=== PATIENT | male | born 1955 | race Caucasian/White ===

== ENCOUNTER 2018-06-22 19:12 | Inpatient (IN) | payer OTHER ==
[2018-06-22] MEDS ORDERED: levETIRAcetam In NaCl (Iso-Os) 1,000 MG in Premix Bag 1 BAG IVPB SCH (19:30)
[2018-06-22] MEDS ORDERED: Lorazepam 2 MG/ML VIAL ONE ×2 (19:38→20:04)
[2018-06-22 19:46] LABS: #Lymphocytes 0.8 thou/uL (1.20-3.40); #Monocytes 1.2 thou/uL (0.11-0.59); %Basophils 0.1 % (0.0-1.0); %Eosinophils 0.1 % (0.0-10.0); %Lymphocytes 5.1 % (21.0-51.0); %Monocytes 8.2 % (0.0-10.0); %Neutrophils 86.5 % (42.0-75.0); Hemoglobin 13.8 g/dL (14.0-18.0); Mean Corpuscular HGB CONC 32.9 g/dL (32.0-36.0); Mean Corpuscular Hemoglobin 32.7 pg (27.0-31.0); Mean Corpuscular Volume 99.4 fL (78.0-98.0); Platelet Count 179 thou/uL (130-400); RBC Distribution Width 11.9 % (11.5-14.5); Red Blood Cell (RBC) Count 4.23 mill/uL (4.70-6.10); White Blood Cell (WBC) Count 15.1 thou/uL (4.8-10.8)
[2018-06-22 20:08] LABS: ALT (SGPT) 27 U/L (8-55); AST (SGOT) 54 U/L (5-34); Albumin 4.7 g/dL (3.4-4.8); Alkaline Phosphatase 70 U/L (40-150); Anion Gap 29 mmol/L (10-20); BUN (Urea Nitrogen) 6 mg/dL (8.4-25.7); Calc. Creatinine Clearance 0 mL/min (70-130); Calcium 9.2 mg/dL (7.8-10.44); Carbon Dioxide 13 mmol/L (23-31); Chloride 99 mmol/L (98-107); Estimated GFR-MDRD 75; Globulin 3.7 g/dL (2.4-3.5); Glucose 154 mg/dL (80-115); Potassium 3.4 mmol/L (3.5-5.1); Protein, Total 8.4 g/dL (5.8-8.1); Sodium 138 mmol/L (136-145)
[2018-06-22 20:56] LABS: Acetaminophen Less than 6.0 mcg/mL (10.0-30.0); Alcohol Less than 10 mg/dL (Less than 10); Salicylate Less than 8.0 mg/dL (15.0-30.0)
[2018-06-22] MEDS ORDERED: Acetaminophen 650 MG Suppository ONE (21:26)
--- NOTE | 2018-06-22 21:39 | RAD ---
Frontal radiograph chest: 06/22/2018 COMPARISON: None HISTORY: Seizure FINDINGS: Lungs are clear. Heart and mediastinal contours are unremarkable. IMPRESSION: No acute findings.
[2018-06-22 22:18] LABS: Bilirubin Negative (Negative); Blood, Urine Negative (Negative); Clarity CLEAR (Clear); Glucose, Urine (Dipstick) 500 mg/dL (Negative); Leukocyte Negative (Negative); Nitrite Negative (Negative); Protein, Urine (Dipstick) Negative (Neg-Trace); Specific Gravity, Urine 1.013 (1.002-1.036); Urobilinogen 0.2 mg/dL (0.2-1.0); pH, Urine 5.5 (5.0-9.0)
[2018-06-22 22:27] LABS: Amphetamine Not Detected (NotDetected); Benzodiazepine Screen Detected (NotDetected); Cocaine Metabolite Screen Not Detected (NotDetected); Medtox Reader # READER 1; Methamphetamine Not Detected (NotDetected); Opiate Screen Not Detected (NotDetected); Phencyclidine (PCP) Not Detected (NotDetected); THC/Cannabinoid Screen Detected (NotDetected); Tricyclic Screen Not Detected (NotDetected)
[2018-06-22 22:28] LABS: Barbiturates Screen Not Detected (NotDetected); Medtox Control Line Valid? VALID (VALID); Methadone Not Detected (NotDetected); Oxycodone Screen Not Detected (NotDetected)
[2018-06-22] MEDS ORDERED: Piperacillin/Tazobactam 4.5 GM VIAL ONE (22:42)
[2018-06-22] MEDS ORDERED: Acetaminophen 650 MG Suppository PR PRN (23:52)
[2018-06-22] MEDS ORDERED: Ondansetron ODT 4 MG TAB PO PRN (23:52)
[2018-06-22] MEDS ORDERED: Ondansetron PF 4 MG/2 ML Vial IVP PRN (23:52)
[2018-06-23] MEDS ORDERED: Ondansetron PF 4 MG/2 ML Vial ONE (00:53)
[2018-06-23 02:10] LABS: Lactic Acid 4.1 mmol/L (0.5-2.2)
[2018-06-23] MEDS: cefTRIAXone\\ROCEPHIN 2 GM in Sodium Chloride 0.9% 100 ML IVPB SCH ×2 (03:48→15:16)
[2018-06-23 04:53] LABS: #Lymphocytes 0.9 thou/uL (1.20-3.40); #Monocytes 1.7 thou/uL (0.11-0.59); #Neutrophils 9.3 thou/uL (1.40-6.50); %Basophils 0.2 % (0.0-1.0); %Eosinophils 0.1 % (0.0-10.0); %Lymphocytes 7.2 % (21.0-51.0); %Monocytes 14.4 % (0.0-10.0); %Neutrophils 78.1 % (42.0-75.0); Hemoglobin 13.3 g/dL (14.0-18.0); Mean Corpuscular Hemoglobin 33.1 pg (27.0-31.0); Mean Corpuscular Volume 97.2 fL (78.0-98.0); Mean Platelet Volume 9.5 fL (7.4-10.4); Platelet Count 132 thou/uL (130-400); RBC Distribution Width 11.8 % (11.5-14.5); Red Blood Cell (RBC) Count 4.01 mill/uL (4.70-6.10)
[2018-06-23 05:13] LABS: Anion Gap 18 mmol/L (10-20); BUN (Urea Nitrogen) 4 mg/dL (8.4-25.7); Calc. Creatinine Clearance 0 mL/min (70-130); Calcium 8.3 mg/dL (7.8-10.44); Carbon Dioxide 20 mmol/L (23-31); Chloride 100 mmol/L (98-107); Estimated GFR-MDRD Greater than 90; Glucose 101 mg/dL (80-115); Potassium 3.1 mmol/L (3.5-5.1); Sodium 135 mmol/L (136-145)
--- NOTE | 2018-06-23 08:30 | CT ---
PRELIMINARY REPORT/[facility]/EMERGENTY AFTER-HOURS PROCEDURE CT Head Without Contrast EXAM DATE/TIME: 06/23/2018 1:14 AM CLINICAL HISTORY: 63 years old, male; Signs and symptoms; Patient HX: M63 presents ED for seizure. EMS reports PT was f ound sitting on couch. EMS reports PT takes keppra. reports PT drinks a lot of ETOH. report s first seizure was at 1901 lasting 10 min. EMS reports recent seizure lasted 45 secs. TECHNIQUE: Imaging protocol: Axial computed tomography images of the head/brain without contrast. COMPARISON: No relevant prior studies available. FINDINGS: Brain: Scattered areas of hypoattenuation, likely chronic small vessel ischemic change, demyelination , or gliosis. There is parenchymal atrophy. No mass, hemorrhage, or acute infarction. Ventricles: Normal. Bones/joints: Normal. Sinuses: Normal as visualized. Mastoid air cells: Normal as visualized. Soft tissues: Unremarkable. Vasculature: Atherosclerotic vascular calcifications. IMPRESSION: No acute intracranial abnormality. Thank you for allowing us to participate in the care of your patient. Dictated and Authenticated by: Sánchez Montague MD 06/23/2018 2:41 AM Central Time ([place] & [place]) FINAL REPORT CT OF BRAIN WITHOUT CONTRAST: I agree with the preliminary report given by Dr. Sánchez Montague of [facility]. POS: OFF
[2018-06-23] MEDS ORDERED: Enoxaparin Sodium 40 MG/0.4 ML SYRINGE ONE (08:40)
[2018-06-23] MEDS: Vancomycin HCl 1 GM in Premix Bag 1 BAG IVPB SCH ×2 (08:46→22:05)
[2018-06-23] MEDS ORDERED: Enoxaparin Sodium 40 MG/0.4 ML SYRINGE SC SCH (09:00)
[2018-06-23] MEDS ORDERED: hydrALAZINE 20 MG/ML VIAL SLOW IVP PRN (13:30)
[2018-06-23] MEDS ORDERED: Acetaminophen 500 MG TAB PO PRN (13:30)
[2018-06-23] MEDS ORDERED: Ondansetron ODT 4 MG TAB PO PRN (13:30)
[2018-06-23] MEDS ORDERED: Lorazepam 2 MG/ML VIAL SLOW IVP PRN (13:30)
[2018-06-23] MEDS ORDERED: Ondansetron PF 4 MG/2 ML Vial IVP PRN (13:30)
[2018-06-23] MEDS ORDERED: Potassium Chloride 20 MEQ TAB PO SCH (13:45)
[2018-06-23] MEDS ORDERED: levETIRAcetam 500 MG TAB PO SCH (14:00)
[2018-06-23] MEDS: Sodium Chloride 0.9% 1,000 ML IV SCH (15:17)
[2018-06-23 15:42] VITALS: BMI 20.7
[2018-06-23] MEDS: Potassium Chloride 20 MEQ TAB PO SCH (18:19)
--- NOTE | 2018-06-23 19:51 | HP ---
CHIEF COMPLAINT: Seizures. HISTORY OF PRESENT ILLNESS: This is a 63-year-old male, who presented to [facility] Emergency Department on 06/22/2018, after apparently presenting with multiple seizures. The patient with a known seizure disorder. Apparently, placed on antiseizure medications within the last 4 weeks and the patient relates he ran out of the medication in the last 24 hours. The patient states his last known seizure was approximately a month ago, prompting him to be initiated on seizure medication. The patient states he has been compliant with medication, but is unsure of the name of it, but states he was taking it twice daily. The patient also admits to drinking alcohol, several beers only every few days. The patient apparently was noted with seizure activity approximately 1900 hours on 06/22/2018, lasting up to 10 minutes. EMS personnel apparently arrived and noted seizure activity lasting up to 45 seconds. The patient states he does not currently drive and resides in the [place], [place] area with his . The patient states he ran out of his medications and they are currently at his mother's home in [place], [place]. The patient denied any specific recollection of the events leading up to the seizure and states he was sitting on his couch at home. The history is obtained after review of electronic medical record, emergency room attending physician's notes, and as well as discussions with the patient. The patient denies any specific focal unilateral weakness or difficulty with speech, hearing, or vision. The patient states he is retired from the . In the emergency room, the patient underwent general evaluation including CT imaging of the brain showing no acute process. Metabolic screening showed evidence of lactic acidosis, likely due to seizure activity. However, the patient was placed on empiric IV antibiotic therapy with vancomycin and Zosyn as well as given intravenous normal saline and Keppra 1 g IV x1 dose. PAST MEDICAL HISTORY: 1. Epilepsy, questionable medication compliance. 2. Alcohol use. 3. Cannabis use. PAST SURGICAL HISTORY: Reviewed and negative. CURRENT MEDICATIONS: Seizure medications unknown type. ALLERGIES: NO KNOWN DRUG ALLERGIES. FAMILY HISTORY: Father of complications of colon cancer at 61 years of age. SOCIAL HISTORY: The patient is residing in [place], [place]. Drinks up to 2 to 3 beers daily. Occasional tobacco use. Denies illicit drug use with urine drug screen positive for cannabis. Retired of the armed services. Resides in [place], [place]. REVIEW OF SYSTEMS: CONSTITUTIONAL: Negative for weight loss or gain, ability to conduct usual activities. SKIN: Negative for rash, itching. EYES: Negative for double vision, pain. ENT/MOUTH: Negative for nose bleeding, neck stiffness, pain, tenderness. CARDIOVASCULAR: Negative for palpitations, dyspnea on exertion, orthopnea. RESPIRATORY: Negative for shortness of breath, wheezing, cough, hemoptysis, fever or night sweats. GASTROINTESTINAL: Negative for poor appetite, abdominal pain, heartburn, nausea, vomiting, constipation, or diarrhea. GENITOURINARY: Negative for urgency, frequency, dysuria, nocturia. MUSCULOSKELETAL: Negative for pain, swelling. NEUROLOGIC/PSYCHIATRIC: Negative for anxiety, depression. ALLERGY/IMMUNOLOGIC: Negative for skin rash, bleeding tendency. Otherwise, negative except as stated per HPI. PHYSICAL EXAMINATION: VITAL SIGNS: On admission; blood pressure 138/92, pulse 133, respiratory rate 20, temperature 99.1 degrees Fahrenheit, and O2 saturation is 98% on room air. GENERAL APPEARANCE: This is a 63-year-old male, alert and oriented to person and city, in no acute distress. HEENT: Pupils are equal, round, and reactive to light and accommodation. Extraocular muscles are intact. No scleral icterus. No conjunctival injection. Nares patent. OP is clear. Teeth in fair repair. NECK: Supple. No cervical adenopathy. No thyromegaly. No carotid bruits. No JVD appreciated. Cervical spine with full active and passive range of motion. No meningeal signs noted. CHEST: Lungs are clear to auscultation bilaterally. CARDIOVASCULAR: S1 and S2 without noted murmur, rub, or gallop. ABDOMEN: Rounded, soft, nontender, and nondistended. Bowel sounds are positive in all 4 quadrants. There is no hepatosplenomegaly. No abdominal bruits. No rebound or guarding appreciated. EXTREMITIES: Warm and dry with fair turgor. No clubbing, cyanosis, or asymmetric edema appreciated. Pulses palpable distally at the dorsalis pedis, posterior tibial, and popliteal arteries bilaterally. Capillary refill less than 2 seconds. NEUROLOGIC: Cranial nerves 2 through 12 are grossly intact. Follows all commands and responsive to questions. Alert and oriented to person and city. PERTINENT LAB AND X-RAY FINDINGS: Sodium 135, potassium 3.1, chloride 100, CO2 of 20, BUN 4, creatinine 0.64, glucose 101, lactic acid level ranged between 4.1 to 5.9, calcium 8.3, AST of 54, ALT of 27, and alkaline phosphatase 70. Procalcitonin 0.14. CBC showed a white blood cell count of 12.0, hemoglobin 13.3, hematocrit 38.9, and platelet count 132 with 78% neutrophils. Urinalysis positive for glucose and ketones. Urine drug screen dated 06/22/2018, positive for benzodiazepines and cannabinoids. Plasma alcohol level less than 10. Blood cultures x2 dated 06/22/2018, showed no growth to-date. Portable chest x-ray dated 06/22/2018, showed no acute cardiopulmonary process. CT imaging of the brain dated 06/23/2018 showed no acute intracranial process. EKG dated 06/22/2018, by my interpretation shows sinus tachycardia with heart rates in the 140s. Normal R-wave progression noted in the precordial leads. Normal axis. No acute ST-T wave changes appreciated. ASSESSMENT AND PLAN: 1. Seizures. The patient will be admitted to the stroke unit. Suspect secondary to medication noncompliance. We will continue Keppra 500 mg p.o. b.i.d. Consult Neurology Service for further recommendations and evaluation. Check TSH and magnesium level in the a.m. Confirm home medication regimen for seizures. 2. Lactic acidosis. Suspect secondary to seizures. No current evidence of focal infectious process. Continue intravenous normal saline at 100 mL/h. 3. Metabolic encephalopathy. Acute episode secondary to seizures. We will continue supportive management as outlined previously. Continue to monitor mental status. 4. Alcohol use. We will provide Ativan p.r.n. withdrawal symptoms. 5. Cannabis abuse. We will offer resources regarding cessation programs on an outpatient basis. 6. Prophylaxis. Sequential compression devices while in bed. Pepcid 20 mg p.o. b.i.d. General seizure precautions. CODE STATUS: Full. Surrogate medical decision maker is the patient's spouse. Job ID: [id number]
[2018-06-23] MEDS: levETIRAcetam 500 MG TAB PO SCH (22:06)
[2018-06-23] MEDS: Famotidine 20 MG TAB PO SCH (22:06)
[2018-06-24] MEDS: Sodium Chloride 0.9% 1,000 ML IV SCH ×2 (00:16→10:02)
[2018-06-24] MEDS: cefTRIAXone\\ROCEPHIN 2 GM in Sodium Chloride 0.9% 100 ML IVPB SCH (01:02)
[2018-06-24 05:15] LABS: Band 1 % (5-11); Hemoglobin 13.9 g/dL (14.0-18.0); Hypochromia SLIGHT = 6-15 cells (100X) (0-5/hpf); Lymphocytes 10 % (21-51); MDiff Complete? YES; Mean Corpuscular HGB CONC 32.8 g/dL (32.0-36.0); Mean Corpuscular Hemoglobin 32.9 pg (27.0-31.0); Mean Platelet Volume 9.8 fL (7.4-10.4); Monocytes 8 % (0-10); Neutrophil 81 % (42-75); Platelet Count 115 thou/uL (130-400); Platelet Morphology Comment Appears Decreased; RBC Distribution Width 11.7 % (11.5-14.5); Red Blood Cell (RBC) Count 4.22 mill/uL (4.70-6.10)
[2018-06-24 05:32] LABS: ALT (SGPT) 22 U/L (8-55); AST (SGOT) 73 U/L (5-34); Albumin 3.8 g/dL (3.4-4.8); Alkaline Phosphatase 43 U/L (40-150); Anion Gap 21 mmol/L (10-20); BUN (Urea Nitrogen) Less than 4 mg/dL (8.4-25.7); Bilirubin, Total 0.7 mg/dL (0.2-1.2); Calc. Creatinine Clearance 90 mL/min (70-130); Calcium 8.7 mg/dL (7.8-10.44); Carbon Dioxide 15 mmol/L (23-31); Chloride 100 mmol/L (98-107); Estimated GFR-MDRD Greater than 90; Globulin 3.6 g/dL (2.4-3.5); Glucose 75 mg/dL (80-115); Magnesium 1.6 mg/dL (1.6-2.6); Potassium 4.5 mmol/L (3.5-5.1); Protein, Total 7.4 g/dL (5.8-8.1); Sodium 131 mmol/L (136-145)
[2018-06-24] MEDS: Potassium Chloride 20 MEQ TAB PO SCH (09:42)
[2018-06-24] MEDS: levETIRAcetam 500 MG TAB PO SCH ×2 (09:42→21:26)
[2018-06-24] MEDS: Vancomycin HCl 1 GM in Premix Bag 1 BAG IVPB SCH (10:01)
[2018-06-24] MEDS: Famotidine 20 MG TAB PO SCH ×2 (10:01→21:26)
[2018-06-24] MEDS ORDERED: Lorazepam 1 MG TAB PO PRN (15:56)
--- NOTE | 2018-06-24 16:02 | PDOC.PN ---
- Subjective Encounter Start Date: 06/24/18 Encounter Start Time: 15:50 Subjective: f/u for seizures on current Keppra. Remains confused per nursing pulling -: out several IV's, tele monitors. - Objective Resuscitation Status - Order Detail: 06/22/18 23:52 Resuscitation Status Routine Resuscitation Status: FULL: Full Resuscitation MAR Reviewed: Yes Vital Signs & Weight: Vital Signs (12 hours) Temp Pulse Resp BP BP Pulse Ox 06/24/18 12:00 98.8 F 105 H 16 165/102 H 97 06/24/18 04:00 98 F 82 16 119/90 119/90 98 Weight Admit Weight 124 lb 9.6 oz Weight 124 lb 9.6 oz I&O: 06/23/18 06/24/18 06/25/18 06:59 06:59 06:59 Intake Total 1175 Balance 1175 Result Diagrams: 06/24/18 04:32 06/24/18 04:32 Additional Labs: Laboratory Tests 06/22/18 06/22/18 06/23/18 19:35 19:35 03:53 WBC 15.1 H 12.0 H Phenytoin Valproic Acid Levetiracetam Less than 2.0 06/23/18 06/23/18 06/23/18 15:53 18:49 18:49 WBC Phenytoin Less than 1.8 L Valproic Acid Less than 12.5 L Levetiracetam 4.0 Radiology Reviewed by me: Yes (CT brain - neg) EKG Reviewed by me: Yes (Tele - SR) Phys Exam - Physical Examination Constitutional: NAD HEENT: PERRLA, sclera anicteric, oral pharynx no lesions Neck: no nodes, no JVD, supple, full ROM Respiratory: no wheezing, no rales, no rhonchi, clear to auscultation bilateral S1, S2 Cardiovascular: RRR, no significant murmur, no rub, gallop Gastrointestinal: soft, non-tender, no distention, positive bowel sounds Musculoskeletal: no edema, pulses present Neurological: normal sensation, moves all 4 limbs A x O x 2 Skin: normal turgor, cap refill <2 seconds Dx/Plan (1) Seizures Code(s): R56.9 - UNSPECIFIED CONVULSIONS Status: Acute Comment: Likely due to non-compliance, continue Keppra 500mg BID, seizure precautions (2) Acute metabolic encephalopathy Code(s): G93.41 - METABOLIC ENCEPHALOPATHY Status: Acute Comment: Improved, likely multifactorial (3) Alcohol abuse Code(s): F10.10 - ALCOHOL ABUSE, UNCOMPLICATED Status: Chronic Comment: Ativan prn, MVI/Thiamine/Folate (4) Cannabis abuse Code(s): F12.10 - CANNABIS ABUSE, UNCOMPLICATED Status: Chronic Comment: Cessation resources (5) Noncompliance with medication regimen Code(s): Z91.14 - PATIENT'S OTHER NONCOMPLIANCE WITH MEDICATION REGIMEN Status : Chronic Comment: Encourage compliance, close follow up with PCP - Plan PT/OT, perinatal social worker, out of bed/ambulate, DVT proph w/SCDs Stable currently -: Ativan 1mg po q4h prn withdrawal sx -: Continue Keppra 500mg BID -: PT for functional assessment -: Start MVI/Thiamine/Folate * D/C KCL * Likely home in am
--- NOTE | 2018-06-24 20:03 | CON ---
DATE OF CONSULTATION: 06/24/2018 CONSULTING PHYSICIAN: Hospitalist Service. IMPRESSION: Breakthrough seizures secondary to subtherapeutic levels. PLAN: 1. Keppra 500 mg twice a day. 2. The patient will be discharged for outpatient followup. HISTORY OF PRESENT ILLNESS: Mr. Santizo is a 63-year-old gentleman with a long history of seizures. He was previously seen in 2010 as an outpatient. He had prior treatment of seizures with Dilantin and Tegretol. He had reportedly taken Keppra in the past as well as Depakote. Currently, he was reporting that he was only taking Keppra 250 mg a day. He came in after a seizure. CT of the brain was negative. His pO2 was depressed. His Keppra level was 4. He is feeling fine at this point. PAST MEDICAL HISTORY: Seizures. ALLERGIES: NONE REPORTED. SOCIAL HISTORY: Unremarkable. FAMILY HISTORY: Unremarkable. REVIEW OF SYSTEMS: Ten-system review of systems is otherwise negative. PHYSICAL EXAMINATION: GENERAL: He is a somewhat disheveled-appearing, middle-aged man, in no acute distress. VITAL SIGNS: Have been stable. He is afebrile. HEENT: Within normal limits. NECK: Supple. EXTREMITIES: No cyanosis. NEUROLOGIC: Alert and cooperative. Speech is fluent and clear. His exam is nonfocal. No abnormal movements were seen. IMAGING: Reviewed. SUMMARY: A 63-year-old male with a breakthrough seizures secondary to subtherapeutic levels. He reports this is due to his misconception about how useless to take his medication. I will be happy to follow up with him as an outpatient. Job ID: [id number]
[2018-06-25 07:48] VITALS: BP 142/90; TEMP 99
[2018-06-25] MEDS: Famotidine 20 MG TAB PO SCH (08:21)
[2018-06-25] MEDS: levETIRAcetam 500 MG TAB PO SCH (08:21)
[2018-06-25] MEDS ORDERED: Thiamine 100 MG TAB PO SCH (09:00)
[2018-06-25] MEDS ORDERED: Folic Acid 1 MG TAB PO SCH (09:00)
[2018-06-25] MEDS ORDERED: Multivit, Therapeutic 1 TAB PO SCH (09:00)
--- NOTE | 2018-06-25 09:07 | EEG ---
Referring Physician: Prema FABIAN EEG # [id number] TEST TYPE: ROUTINE PORTABLE INPATIENT REPORT: AN EEG USING THE INTERNATIONAL TEN-TWENTY SYSTEM OF ELECTRODE PLACEMENT WAS PERFORMED. The background activity, at best, is an 8-9 hertz Alpha frequency. Large portions of the record were obscured by movement artifact. Photic stimulation was unremarkable. No epileptiform features were seen. IMPRESSION: THIS IS A LIMITED EXAM, BUT APPEARS UNREMARKABLE. Snow Removal Supervisor: ROSMERY Proposal Development Manager: [email or web address] BARRY
--- NOTE | 2018-06-26 02:09 | DIS ---
DATE OF ADMISSION: 06/22/2018 DATE OF DISCHARGE: 06/25/2018 DISCHARGE DIAGNOSES: 1. Recurrent seizures. 2. Acute metabolic encephalopathy secondary to #1, improved. 3. Alcohol abuse. 4. Cannabis abuse. 5. Noncompliance with medication regimen. CONSULTATIONS: Dr. Rohit Johnson with Neurology Service. PERTINENT LAB AND X-RAY FINDINGS: Sodium ranged between 131 to 138, potassium ranged between 3.1 to 4.5, lactic acid level ranged between 4.1 to 5.9, magnesium level 1.6. AST 73, ALT 22, total bilirubin 0.7. TSH 1.61. CBC showed a white blood cell count ranged between 10.0 to 15.1, hemoglobin 13.9. Urine drug screen dated 06/22/2018, positive for cannabis and benzodiazepines. Plasma alcohol level less than 10. Valproic acid level less than 12.5. Phenytoin level less than 1.8. Keppra level ranged between 2.0 to 4.0. Blood cultures x2 dated 06/22/2018, showed no growth at 48 hours. Portable chest x-ray dated 06/22/2018, showed no acute cardiopulmonary process. CT of the brain without contrast dated 06/23/2018, showed no acute intracranial process. HOSPITAL COURSE: The patient was initially admitted to the stroke unit status post breakthrough seizure with a known seizure disorder. The patient with subtherapeutic levels of all antiseizure medications including Keppra, phenytoin, and valproic acid. The patient was treated initially with IV Keppra, transitioning to oral Keppra 500 mg b.i.d. The patient was placed on IV fluids and given general supportive management. The patient was evaluated by the Neurology Service with recommendations to continue Keppra therapy and maintain consistency and compliance with medication regimen after discharge. The patient was noted with associated metabolic encephalopathy, likely multifactorial including alcohol use in conjunction with recurrent seizures. The patient at baseline mental status function by the time of discharge. The patient received general supportive management including IV fluids and remained clinically stable without recurrent seizures during the hospital course. Telemetry monitoring showed sinus mechanism with occasional tachycardia. I have examined the patient at the time of discharge and discussed followup instructions. The patient overall clinically stable and ready for discharge on 06/25/2018. DISCHARGE MEDICATIONS: 1. Keppra 500 mg p.o. b.i.d. 2. Amlodipine 10 mg p.o. daily. 3. Depakote 250 mg p.o. daily. 4. Ranitidine 150 mg p.o. b.i.d. FOLLOWUP: The patient may follow up with [facility] within 7 days. The patient may follow up with Dr. Rohit Johnson with Neurology Service and to call his office for appointment time and date. CONDITION ON DISCHARGE: Stable. ACTIVITY: Ad-mindy. DIET: Regular. CODE STATUS: Full. DISPOSITION: To home, 06/25/2018. Job ID: [id number]
== END 2018-06-25 10:06 | disposition home or self-care (01) | DRG 100 ==
LOC: ERS 19:12 → ERHOLD 23:20 → 2SE 06-23 13:23 → 2NO 06-23 13:40 → 2SE 06-23 18:35
PROVIDERS: ADMIT Hospitalist; ATTEND Hospitalist
DX: G40.909 Epilepsy, unspecified, not intractable, without status epilepticus (principal); G93.41 Metabolic encephalopathy; E87.2 Acidosis; F10.10 Alcohol abuse, uncomplicated; F12.10 Cannabis abuse, uncomplicated; Z79.899 Other long term (current) drug therapy; Z91.14 Patient's other noncompliance with medication regimen
CPT/HCPCS: 36415; 36416; 70450; 71045; 80048; 80053; 80164; 80177; 80185; 80306; 80307; 81003; 83605; 83735; 84145; 84443; 85007; 85025; 85027; 87040; 93005; 95816; 95819; J0360; J0696; J1650; J1953; J2060; J2405; J2543; J3370; J3490